=== PATIENT | female | born 1995 | race Caucasian/White ===

== ENCOUNTER → 2017-01-26 22:45 | Emergency (ER) | payer OTHER ==
[2017-01-26 22:55] VITALS: BP 129/60
--- NOTE | 2017-01-27 01:51 | ED ---
Upper Extremity Pain <Andrew Douglas - Last Filed: 01/28/17 03:22> - HPI Summary HPI Summary: Patient presents to the ED with left wrist deformity and pain after injuring the extremity during a dance. She recalls falling out on the hand with hyperextension. She denies previous injury to the wrist or other complaints. Denies numbness/tingling. No color or temperature changes are noted. Pain discretely located over the dorsum of the left wrist. Pain is 2/10 on rest and 8/10 with palpation. Unable to flex and extend at the wrist joint. Denies pain in the fingertips, hand or elbow. - History of Current Complaint Hx Obtained From: Patient Mechanism Of Injury: Blunt Trauma Onset/Duration: Started Hours Ago Timing: Constant Severity Initially: Moderate Severity Currently: Moderate Pain Location: Wrist Character: Aching Aggravating Factor(s): Movement, Flexion, Extension, Internal/External Rotation Alleviating Factor(s): Rest, Ice Associated Signs & Symptoms: Positive: Other - deformity Related History: Dominant Hand Right - Risk Factors Non-Orthopedic Risk Factor: Negative DVT Risk Factors: Negative Compartment Syndrome Risk Factors: Pain <Brandy Newton - Last Filed: 02/02/17 12:32> - History of Current Complaint Chief Complaint: EDExtremityLower Stated Complaint: LT WRIST INJURY Time Seen by Provider: 01/26/17 22:58 - Allergies/Home Medications Allergies/Adverse Reactions: Allergies Allergy/AdvReac Type Severity Reaction Status Date / Time No Known Allergies Allergy Verified 01/26/17 22:55 PMH/Surg Hx/FS Hx/Imm Hx Previously Healthy: Yes - Immunization History Hx Pertussis Vaccination: No Immunizations Up to Date: Unable to Obtain/Confirm Infectious Disease History: No Infectious Disease History: Denies: Traveled Outside the [place] in Last 30 Days - Social History Occupation: Unemployed, Student Lives: Dormitory/Roommates Alcohol Use: None Hx Substance Use: No Substance Use Type: Reports: None Hx Tobacco Use: No Smoking Status (MU): Never Smoked Tobacco <Brandy Newton - Last Filed: 02/02/17 12:32> Review of Systems Constitutional: Negative Negative: Fever, Chills, Fatigue Eyes: Negative Cardiovascular: Negative Respiratory: Negative Genitourinary: Negative Positive: no symptoms reported, see HPI Positive: Arthralgia - left wrist pain Skin: Negative Neurological: Negative All Other Systems Reviewed And Are Negative: Yes <Brandy Newton - Last Filed: 02/02/17 12:32> Physical Exam Vital Signs On Initial Exam: Initial Vitals Temp Pulse Resp BP Pulse Ox 37.0 C 72 20 129/60 100 01/26/17 22:50 01/26/17 22:50 01/26/17 22:50 01/26/17 22:50 01/26/17 22:50 <Andrew Douglas - Last Filed: 01/28/17 03:22> Triage Information Reviewed: Yes Vital Signs On Initial Exam: Initial Vitals Temp Pulse Resp BP Pulse Ox 98.6 F 72 20 129/60 100 01/26/17 22:50 01/26/17 22:50 01/26/17 22:50 01/26/17 22:50 01/26/17 22:50 Vital Signs Reviewed: Yes Appearance: Positive: Well-Appearing, Well-Nourished Skin: Positive: Warm, Skin Color Reflects Adequate Perfusion Head/Face: Positive: Normal Head/Face Inspection Eyes: Positive: EOMI, SAMI, Conjunctiva Clear Neck: Positive: Supple, Nontender, No Lymphadenopathy Respiratory/Lung Sounds: Positive: Clear to Auscultation, Breath Sounds Present Cardiovascular: Positive: Normal, RRR, Pulses are Symmetrical in both Upper and Lower Extremities Musculoskeletal: Positive: Pain @ - left wrist with deformity Neurological: Positive: Sensory/Motor Intact, Speech Normal Psychiatric: Positive: Normal, Affect/Mood Appropriate - [place] Coma Scale Coma Scale Total: 15 <Brandy Newton - Last Filed: 02/02/17 12:32> Diagnostics - Vital Signs Vital Signs Temp Pulse Resp BP Pulse Ox 01/26/17 22:50 37.0 C 72 20 129/60 100 <Andrew Douglas - Last Filed: 01/28/17 03:22> - Vital Signs Vital Signs Temp Pulse Resp BP Pulse Ox 01/26/17 22:50 98.6 F 72 20 129/60 100 <Brandy Newton - Last Filed: 02/02/17 12:32> Course/Dx - Course Assessment/Plan: I supervised the care of the physician insurance claims assistant. I was available for consultation. <Andrew Douglas - Last Filed: 01/28/17 03:22> - Course Course Of Treatment: Patient evaluated for wrist deformity and pain. Fracture noted over the radius and the ulna. Read by myself and Dr. Douglas. Confirmed by Dr. Smith (radiology) who reports radial metaphysis, ulnar styloid and vertical fx through radius. Volar splint applied. Patient given follow up to ortho for next week. Care instructions given. - Diagnoses Differential Diagnosis/HQI/PQRI: Positive: Fracture (Closed) <Brandy Newton - Last Filed: 02/02/17 12:32> - Diagnoses Provider Diagnoses: Wrist fracture, closed Discharge <Andrew Douglas - Last Filed: 01/28/17 03:22> <Brandy Newton - Last Filed: 02/02/17 12:32> - Discharge Plan Condition: Stable Disposition: HOME Patient Education Materials: Wrist Fracture in Adults (ED) Referrals: On License Of [facility] [Primary Care Provider] - Constanza Malhotra MD [Medical Doctor] - Additional Instructions: Ibuprofen 600mg three times daily Keep clean and dry Elevate when possible Wear the splint until follow up with ortho I have given you a referral Call tomorrow for an appt.
--- NOTE | 2017-01-27 08:01 | RAD ---
Indication: Left wrist pain 3 views of the wrist demonstrates suggestion of a nondisplaced fracture through the radial metaphysis extending into the proximal radius. This fracture of the ulnar styloid process. IMPRESSION: Fracture of the radial metaphysis and a vertical nondisplaced fracture through the distal radius and fracture of the ulnar styloid process.
== END | disposition home or self-care (01) ==
LOC: ED 22:45
DX: S62.102A Fracture of unspecified carpal bone, left wrist, initial encounter for closed fracture (principal); W19.XXXA Unspecified fall, initial encounter; Y93.41 Activity, dancing; Y92.9 Unspecified place or not applicable
CPT/HCPCS: 99281